=== PATIENT | female | born 1940 | race Caucasian/White ===

== ENCOUNTER 2016-11-26 10:19 | Emergency (ER) | payer MEDICARE ==
[2016-11-26 11:23] VITALS: BP 161/85
--- NOTE | 2016-11-26 15:48 | ED ---
I, Oh,Soohyun, scribed for Tino Sol MD on 11/26/16 at 1115 . Dizziness - HPI Summary HPI Summary: This 75 y/o female presents to ED for intermittent lightheaded dizziness since 2 weeks ago, worse since today AM. Positive for frontal "head pressure", general weakness, and "unsteadiness". Dizziness is worse with head movement. 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 She admits that she frequently takes decongestant to control recurrent congestions. Pt is currently on venlafaxine. Primary care involves Ramses Maldonado. Allergies information involving Levaquin and PCN is reviewed and confirmed. - History Of Current Complaint Chief Complaint: EDDizziness Stated Complaint: DIZZY Time Seen by Provider: 11/26/16 10:41 Hx Obtained From: Patient, Medical Records Timing: Intermittent Episode Lasting Character: Lightheaded Aggravating Factor(s): Change In Head Position Alleviating Factor(s): Nothing Associated Signs And Symptoms: Positive: Unsteady Gait, Other: - general weakness - Allergies/Home Medications Allergies/Adverse Reactions: Allergies Allergy/AdvReac Type Severity Reaction Status Date / Time Ibuprofen Allergy GI Upset Verified 11/26/16 10:39 Levofloxacin [From Levaquin] Allergy Rash Verified 11/26/16 10:39 Morphine Allergy Nausea And Verified 11/26/16 10:39 Vomiting Penicillins Allergy Hives Verified 11/26/16 10:39 PMH/Surg Hx/FS Hx/Imm Hx Cardiovascular History: Reports: Hx Hypertension Respiratory History: Reports: Hx Pulmonary Embolism - 2006 POST OP SPINAL SURGERY, Other Respiratory Problems/Disorders - emphysema Musculoskeletal History: Reports: Hx Arthritis - OSTEO: KNEES, HANDS Sensory History: Reports: Hx Cataracts - BILATERAL, Hx Contacts or Glasses - GLASSES Opthamlomology History: Reports: Hx Cataracts - BILATERAL, Hx Contacts or Glasses - GLASSES Psychiatric History: Reports: Hx Anxiety - ON MEDS - Surgical History Surgery Procedure, Year, and Place: YOUNG CHILD T&A [facility]. TEENAGER 1 OVARY REMOVED [facility]. 1960 APPENDECTOMY [facility]. 1991 [place]CTOMY [place]. [place] [facility] [place] SPINAL CORD TUMOR STRONG Hx Anesthesia Reactions: No Infectious Disease History: No Infectious Disease History: Denies: Traveled Outside the [place] in Last 30 Days - Family History Known Family History: Negative: Other - negative adverse anesthesia reaction - Social History Alcohol Use: Daily Alcohol Amount: 1 DRINK/NIGHT Substance Use Type: Reports: None Smoking Status (MU): Former Smoker Type: Cigarettes Amount Used/How Often: 1PPD 20YRS Have You Smoked in the Last Year: No Review of Systems Negative: Fever Positive: Other - "head heaviness Neurological: Other - Positive for lightheaded dizziness Positive: Weakness - general Positive: Anxious All Other Systems Reviewed And Are Negative: Yes Physical Exam - Summary Physical Exam Summary: Well-appearing, no pain distress, BMI > 30 = obese Warm, dry, color reflects adequate perfusion Nml head/face Nml eyes. EOMI. Nml ENT. Frontal sinus does not transluminate very well. Supple, non-tender CTA, breath sound present RRR Nml musculoskeletal Neuro: Normal [id number]. Negative pronator drift bilat upper extremities. Nml psychiatric, affect/mood appropriate Triage Information Reviewed: Yes Vital Signs On Initial Exam: Initial Vitals Temp Pulse Resp BP Pulse Ox 98.2 F 91 18 194/92 92 11/26/16 10:22 11/26/16 10:22 11/26/16 10:22 11/26/16 10:22 11/26/16 10:22 Vital Signs Reviewed: Yes Diagnostics - Vital Signs Vital Signs Temp Pulse Resp BP Pulse Ox 11/26/16 10:44 88 22 164/93 98 11/26/16 10:41 89 164/93 11/26/16 10:39 90 190/93 11/26/16 10:38 89 14 190/93 97 11/26/16 10:36 168/100 11/26/16 10:35 98.2 F 89 18 190/93 98 11/26/16 10:22 98.2 F 91 18 194/92 92 - Laboratory Lab Statement: Any lab studies that have been ordered have been reviewed, and results considered in the medical decision making process. - EKG 1038 Cardiac Rate: NL - NSR at 88 bpm EKG Rhythm: Sinus Rhythm Dizzy Course/Dx - Course Course Of Treatment: Ms. De Los Santos presented with a C/O 'fullness' in her forehead for a week or so that was worse if she tilted her head back. If she lies down it goes away after awhile and she can sleep. She has been using decongestants and antihistamines. Her frontal sinuses transilluminated poorly if at all and I will add antibiotics to her regimen. - Diagnoses Provider Diagnoses: Sinusitis Discharge - Discharge Plan Condition: Good Disposition: HOME Prescriptions: DOXYcycline CAP(*) [DOXYcycline 100MG CAP(*)] 100 mg PO BID #20 cap Patient Education Materials: Sinusitis (ED), Doxycycline (By mouth) Referrals: Daniella Quintero MD [Primary Care Provider] - 2 Days The documentation as recorded by the Denis quinonez Soohyun accurately reflects the service I personally performed and the decisions made by me, Tino Sol MD.
== END 2016-11-26 11:30 | disposition home or self-care (01) ==
LOC: ED 10:19
DX: J32.9 Chronic sinusitis, unspecified (principal); R42 Dizziness and giddiness; R53.1 Weakness; F41.9 Anxiety disorder, unspecified; Z87.891 Personal history of nicotine dependence
CPT/HCPCS: 93005; 99282

== ENCOUNTER 2017-02-10 13:40 | Emergency (ER) | payer MEDICARE ==
[2017-02-10 13:49] VITALS: BP 160/88
--- NOTE | 2017-02-10 16:20 | RAD ---
Indication: LEFT foot pain post fall. Comparison: No relevant prior exams available on the [facility] PACS for comparison. Technique: AP, lateral, and oblique views LEFT foot. Report: Negative for fracture or articular malalignment. Mild osteophytosis and joint space narrowing at the first metatarsal phalangeal joint. Chronic calcification at the noninsertional segment of the Achilles tendon. Unremarkable soft tissue contours. IMPRESSION: 1. Negative for fracture. 2. Mild first metatarsal phalangeal joint osteoarthritis. 3. Sequela of previous noninsertional Achilles tendinopathy.
--- NOTE | 2017-02-10 18:29 | ED ---
Mauri Flores Nilda, scribed for Tino Sol MD on 02/10/17 at 1552 . Adult Trauma - HPI Summary HPI Summary: This patient is a 76 year old F presenting to [facility] s/p fall when she tripped over cardboard while looking at a pumpkin display earlier today. The patient rates the pain 6/10 in severity. Symptoms alleviated by nothing. Patient reports left foot pain. - History of Current Complaint Chief Complaint: EDExtremityLower Stated Complaint: FALL/LT FOOT PAIN Time Seen by Provider: 02/10/17 14:39 Hx Obtained From: Patient Mechanism of Injury: Fall Onset/Duration: Started Hours Ago Current Severity: Moderate Pain Intensity: 6 Pain Scale Used: 0-10 Numeric Location: Extremities - left foot Alleviating Factor(s): Nothing - Allergy/Home Medications Allergies/Adverse Reactions: Allergies Allergy/AdvReac Type Severity Reaction Status Date / Time Ibuprofen Allergy GI Upset Verified 11/26/16 10:39 Levofloxacin [From Levaquin] Allergy Rash Verified 11/26/16 10:39 Morphine Allergy Nausea And Verified 11/26/16 10:39 Vomiting Penicillins Allergy Hives Verified 11/26/16 10:39 PMH/Surg Hx/FS Hx/Imm Hx Cardiovascular History: Reports: Hx Hypertension Respiratory History: Reports: Hx Pulmonary Embolism - 2006 POST OP SPINAL SURGERY, Other Respiratory Problems/Disorders - emphysema Musculoskeletal History: Reports: Hx Arthritis - OSTEO: KNEES, HANDS Sensory History: Reports: Hx Cataracts - BILATERAL, Hx Contacts or Glasses - GLASSES Opthamlomology History: Reports: Hx Cataracts - BILATERAL, Hx Contacts or Glasses - GLASSES Psychiatric History: Reports: Hx Anxiety - ON MEDS - Surgical History Surgery Procedure, Year, and Place: YOUNG CHILD T&A [facility]. TEENAGER 1 OVARY REMOVED [facility]. 1960 APPENDECTOMY [facility]. 1991 HYSTERECTOMY [place]. RT ING. HERNIA REPAIR [facility] [place]. 2006 BEINGN SPINAL CORD TUMOR STRONG Hx Anesthesia Reactions: No Infectious Disease History: No Infectious Disease History: Denies: Traveled Outside the [place] in Last 30 Days - Family History Known Family History: Positive: Hypertension Negative: Diabetes, Other - negative adverse anesthesia reaction - Social History Alcohol Use: Daily Alcohol Amount: 1 DRINK/NIGHT Substance Use Type: Reports: None Smoking Status (MU): Former Smoker Type: Cigarettes Amount Used/How Often: 1PPD 20YRS Have You Smoked in the Last Year: No Review of Systems Positive: Other - fall Negative: Shortness Of Breath Positive: Other - left foot pain All Other Systems Reviewed And Are Negative: Yes Physical Exam Triage Information Reviewed: Yes Vital Signs On Initial Exam: Initial Vitals Temp Pulse Resp BP Pulse Ox 98.3 F 93 17 160/88 99 02/10/17 13:44 02/10/17 13:44 02/10/17 13:44 02/10/17 13:44 02/10/17 13:44 Vital Signs Reviewed: Yes Appearance: Positive: Well-Appearing, No Pain Distress Skin: Positive: Warm, Skin Color Reflects Adequate Perfusion, Dry Head/Face: Positive: Normal Head/Face Inspection Eyes: Positive: Normal ENT: Positive: Normal ENT inspection Neck: Positive: Supple, Nontender Respiratory/Lung Sounds: Positive: Clear to Auscultation, Breath Sounds Present Cardiovascular: Positive: RRR Abdomen Description: Positive: Nontender, Soft Bowel Sounds: Positive: Present Musculoskeletal: Positive: Other - swelling in dorsal lateral portion of left foot Neurological: Positive: Normal Psychiatric: Positive: Normal, Affect/Mood Appropriate Diagnostics - Vital Signs Vital Signs Temp Pulse Resp BP Pulse Ox 02/10/17 13:44 98.3 F 93 17 160/88 99 - Laboratory Lab Statement: Any lab studies that have been ordered have been reviewed, and results considered in the medical decision making process. - Radiology Foot XRAY Radiology Interpretation Completed By: Radiologist - 1. Negative for fracture. 2. Mild first metatarsal phalangeal joint osteoarthritis. 3. Sequela of previous noninsertional Achilles tendinopathy. ED physician has reviewed this radiology report and agrees. 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 Her x-ray was negative for acute fracture and she was walking about the department without any distress. I will treat her conservatively. - Diagnoses Provider Diagnoses: Sprain of left foot Discharge - Discharge Plan Condition: Stable Disposition: HOME Patient Education Materials: Foot Sprain (ED) Referrals: Daniella Quintero MD [Primary Care Provider] - 1 Week Additional Instructions: Take ibuprofen as needed. RETURN TO THE EMERGENCY DEPARTMENT FOR CHANGING OR WORSENING SYMPTOMS. The documentation as recorded by the Mauri quinonez Nilda accurately reflects the service I personally performed and the decisions made by me, Tino Sol MD.
== END 2017-02-10 17:07 | disposition home or self-care (01) ==
LOC: ED 13:40
DX: S93.602A Unspecified sprain of left foot, initial encounter (principal); M79.672 Pain in left foot; W19.XXXA Unspecified fall, initial encounter; Y93.9 Activity, unspecified; Y92.9 Unspecified place or not applicable
CPT/HCPCS: 99281

== ENCOUNTER 2018-12-04 14:57 | Emergency (ER) | payer MEDICARE ==
[2018-12-04 15:56] LABS: ABS Basophils 0.1 10^3/ul (0-0.2); ABS Eosinophils 0.2 10^3/ul (0-0.6); ABS Lymphocytes 1.9 10^3/ul (1.0-4.8); ABS Monocytes 0.5 10^3/ul (0-0.8); ABS Neutrophils 5.9 10^3/ul (1.5-7.7); Eosinophil % 2.1 %; Hematocrit 39 % (35-47); Hemoglobin 13.3 g/dL (12.0-16.0); Lymphocyte % 22.2 %; Mean Corpuscular HGB Conc 34 g/dL (31-36); Mean Corpuscular Hemoglobin 31 pg (27-31); Mean Corpuscular Volume 91 fL (80-97); Mean Platelet Volume 7.3 fL (7.4-10.4); Platelet Count 187 10^3/uL (150-450); Red Blood Count 4.27 10^6 /uL (3.70-4.87); Red Cell Distribution Width 14 % (10-15); White Blood Count 8.5 10^3/uL (3.5-10.8)
[2018-12-04 16:02] LABS: INR 0.9 (0.82-1.09)
--- NOTE | 2018-12-04 16:02 | ED ---
HPI Chest Pain - HPI Summary HPI Summary: Patient is a 77-year-old female with history of hypertension hypercholesterolemia and emphysema presenting to the ED with midsternal chest tightness which immediately radiated to the left arm. The left arm discomfort dissipated after several seconds and the chest pain dissipated after a few minutes. She was at rest when this occurred. She states she does have emphysema, however has not been short of breath and denies any recent illness. Symptoms resolved spontaneously without medication. Symptoms were not worse with movement or better with rest. Sxs not reproducible. History includes 2 laminectomies, provoked PE following spinal surgery, HTN and HCL Current patient of Dr. Nguyen Quintero - History of Current Complaint Chief Complaint: EDChestPainROMI Time Seen by Provider: 12/04/18 15:34 Hx Obtained From: Patient Onset/Duration: Started Hours Ago Time of Onset: 14:20 - lasted approximately 5-10 minutes Timing: Constant Initial Severity: Moderate Current Severity: Moderate Pain Intensity: 1 Pain Scale Used: 0-10 Numeric Chest Pain Location: Mid Sternal Chest Pain Radiates: Yes Chest Pain Radiates To:: Arm Aggravating Factor(s): Nothing Alleviating Factor(s): Nothing Associated Signs and Symptoms: Positive: Negative - Risk Factors Pulmonary Embolism Risk Factors: Negative - Allergy/Home Medications Allergies/Adverse Reactions: Allergies Allergy/AdvReac Type Severity Reaction Status Date / Time ibuprofen Allergy GI Upset Verified 12/04/18 16:16 levofloxacin [From Levaquin] Allergy Rash Verified 12/04/18 16:16 morphine Allergy Nausea And Verified 12/04/18 16:16 Vomiting Penicillins Allergy Hives Verified 12/04/18 16:16 PMH/Surg Hx/FS Hx/Imm Hx Previously Healthy: Yes Cardiovascular History: Reports: Hx Hypertension Respiratory History: Reports: Hx Pulmonary Embolism - 2006 POST OP SPINAL SURGERY, Other Respiratory Problems/Disorders - emphysema Musculoskeletal History: Reports: Hx Arthritis - OSTEO: KNEES, HANDS Sensory History: Reports: Hx Cataracts - BILATERAL, Hx Contacts or Glasses - GLASSES Opthamlomology History: Reports: Hx Cataracts - BILATERAL, Hx Contacts or Glasses - GLASSES Psychiatric History: Reports: Hx Anxiety - ON MEDS - Surgical History Surgery Procedure, Year, and Place: YOUNG CHILD T&A [facility]. TEENAGER 1 OVARY REMOVED [facility]. 1960 APPENDECTOMY [facility]. 1991 HYSTERECTOMY [place]. RT ING. HERNIA REPAIR [facility] [place]. 2006 BEINGN SPINAL CORD TUMOR STRONG Hx Anesthesia Reactions: No - Immunization History Hx Pertussis Vaccination: No Immunizations Up to Date: Yes Infectious Disease History: Yes Infectious Disease History: Denies: Traveled Outside the [place] in Last 30 Days - Family History Known Family History: Positive: Hypertension Negative: Diabetes, Other - negative adverse anesthesia reaction - Social History Occupation: Unemployed Lives: With Family Alcohol Use: Daily Alcohol Amount: 1 DRINK/NIGHT Hx Substance Use: No Substance Use Type: Reports: None Hx Tobacco Use: Yes Smoking Status (MU): Former Smoker Type: Cigarettes Amount Used/How Often: 1PPD 20YRS Have You Smoked in the Last Year: No Review of Systems Constitutional: Negative Negative: Fever, Chills, Fatigue, Skin Diaphoresis Negative: Dental Pain Positive: Chest Pain. Negative: Palpitations Negative: Shortness Of Breath, Cough Negative: Abdominal Pain, Vomiting, Diarrhea Genitourinary: Negative Positive: no symptoms reported, see HPI Negative: Arthralgia, Myalgia, Decreased ROM, Edema Negative: Headache, Weakness, Paresthesia, Numbness, Syncope Positive: Anxious - became anxious following midsternal chest pain All Other Systems Reviewed And Are Negative: Yes Physical Exam Triage Information Reviewed: Yes Vital Signs On Initial Exam: Initial Vitals Temp Pulse Resp BP Pulse Ox 97.2 F 97 16 199/103 94 12/04/18 14:59 12/04/18 14:59 12/04/18 14:59 12/04/18 14:59 12/04/18 14:59 Vital Signs Reviewed: Yes Appearance: Positive: Well-Appearing, Well-Nourished Skin: Positive: Warm, Skin Color Reflects Adequate Perfusion Head/Face: Positive: Normal Head/Face Inspection Eyes: Positive: EOMI, ROC, Conjunctiva Clear Neck: Positive: Supple, No Lymphadenopathy Respiratory/Lung Sounds: Positive: Clear to Auscultation, Breath Sounds Present Cardiovascular: Positive: RRR, Pulses are Symmetrical in both Upper and Lower Extremities. Negative: Tachycardia, Leg Edema Left, Leg Edema Right Musculoskeletal: Positive: Normal, Strength/ROM Intact Neurological: Positive: Speech Normal Psychiatric: Positive: Normal, Affect/Mood Appropriate AVPU Assessment: Alert Diagnostics - Vital Signs Vital Signs Temp Pulse Resp BP Pulse Ox 12/04/18 14:59 97.2 F 97 16 199/103 94 - Laboratory Result Diagrams: 12/04/18 15:47 12/04/18 15:47 Lab Statement: Any lab studies that have been ordered have been reviewed, and results considered in the medical decision making process. Chest Pain Course/Dx - Course Course Of Treatment: This patient is evaluated for midsternal chest pain which radiated to the left arm which spontaneously resolved after a few minutes. Patient was at rest when the discomfort began. The discomfort is rated a 2/10, a tightening of the chest with associated headache. BP on arrival elevated at 199/103, on re-check 153/70. She denies any nausea, vomiting, abdominal pain, back pain. She did not take any medication prior to arrival. HEART score = low score for MACE. Patient asymptomtaic. Trop 0.00. Chest xray negative for any acute findings. EKG shows normal sinus rhythym with rate of 93. Discussed with patient at length the importance of close f/u with Dr. Quintero. As she does not have any PMH of CAD, she will be DC'd at this time with outpatient f/u and understands to return for any changing sxs. She remains asymptomatic at this time. Pt does have a hiatal hernia noted on CXR, however does not exhibit any typical sxs of this. - Chest Pain Differential Diagnosis/HQI/PQRI: Angina, Other: - emphysema - Diagnoses Provider Diagnoses: Angina at rest, Hiatal hernia Discharge - Sign-Out/Discharge Documenting (check all that apply): Patient Departure Patient Received Moderate/Deep Sedation with Procedure: No - Discharge Plan Condition: Stable Disposition: HOME Patient Education Materials: Angina (ED), Hiatal Hernia (ED) Referrals: Daniella Quintero MD [Primary Care Provider] - Additional Instructions: Please return to the ED for any changing or worsening symptoms Please follow up with Dr. Quintero - Billing Disposition and Condition Condition: STABLE Disposition: Home - Attestation Statements Provider Attestation: I am administratively signing this document. I was available for consultation for this patient. I did not evaluate the patient, did not have a doctor/patient relationship with the patient, or participate in any medical decision making or disposition decisions unless I am specifically named in the chart as having consulted on the patient. If I have consulted on the patient, please see my own ED note on the patient encounter. Albert Pearson MD
[2018-12-04 16:23] LABS: Albumin 4.3 g/dL (3.2-5.2); Albumin/Globulin Ratio 1.5 (1-3); BUN/Creatinine Ratio 34.6 (8-20); EGFR African American 138.7 (>60); EGFR Non-African American 114.6 (>60); Globulin 2.9 g/dL (2-4); Potassium 3.9 mmol/L (3.5-5.0); Total Bilirubin 0.3 mg/dL (0.2-1.0); Total Protein 7.2 g/dL (6.4-8.9)
[2018-12-04 17:15] VITALS: BP 158/90
== END 2018-12-04 17:17 | disposition home or self-care (01) ==
LOC: ED 14:57
DX: I20.9 Angina pectoris, unspecified (principal); K44.9 Diaphragmatic hernia without obstruction or gangrene; I10 Essential (primary) hypertension; Z88.1 Allergy status to other antibiotic agents; Z88.5 Allergy status to narcotic agent; Z88.0 Allergy status to penicillin; Z88.8 Allergy status to other drugs, medicaments and biological substances; Z87.891 Personal history of nicotine dependence; J44.9 Chronic obstructive pulmonary disease, unspecified
CPT/HCPCS: 36415; 71046; 80053; 84484; 85025; 85610; 93005; 99282

== ENCOUNTER 2021-01-31 08:34 | Inpatient (IN) ==
[2021-01-31] MEDS ORDERED: Famotidine IV 10 MG/ML 2 ml VIAL (20 mg) IV SLOW PU ONE (10:04)
[2021-01-31] MEDS ORDERED: Lactated Ringers 1000 ml BAG 1,000 ML IV ONE (10:05)
[2021-01-31 11:04] LABS: ABS Eosinophils 0.1 10^3/ul (0-0.6); ABS Lymphocytes 1.5 10^3/ul (1.0-4.8); ABS Monocytes 0.3 10^3/ul (0-0.8); ABS Neutrophils 5.8 10^3/ul (1.5-7.7); Eosinophil % 0.7 %; Hematocrit 41 % (35-47); Hemoglobin 13.9 g/dL (12.0-16.0); Lymphocyte % 18.9 %; Mean Corpuscular HGB Conc 34 g/dL (31-36); Mean Corpuscular Hemoglobin 31 pg (27-31); Mean Corpuscular Volume 93 fL (80-97); Mean Platelet Volume 7.2 fL (7.4-10.4); Platelet Count 206 10^3/uL (150-450); Red Blood Count 4.44 10^6 /uL (3.70-4.87); Red Cell Distribution Width 14 % (10-15); White Blood Count 7.7 10^3/uL (3.5-10.8)
[2021-01-31 11:55] LABS: Albumin 4.1 g/dL (3.2-5.2); Albumin/Globulin Ratio 1.3 (1-3); Calcium 10.7 mg/dL (8.6-10.3); EGFR African American 158.6 (>60); Globulin 3.2 g/dL (2-4); Potassium 3.9 mmol/L (3.5-5.0); Total Bilirubin 0.6 mg/dL (0.2-1.0); Total Protein 7.3 g/dL (6.4-8.9)
[2021-01-31 18:51] LABS: Rapid COVID-19 Molecular Undetected (Undetected)
[2021-01-31] MEDS ORDERED: Albuterol HFA INHALER 8 gm MDI INH PRN (22:58)
[2021-01-31] MEDS ORDERED: HYDROcodone/ACETAMIN 5/325 mg TAB PO PRN (22:58)
[2021-01-31] MEDS: Enoxaparin 40 MG/0.4 ML SYR SUBCUT SCH (23:12)
[2021-02-01] MEDS ORDERED: Tiotropium Brom/Olodaterol MDI INH SCH (09:00)
[2021-02-01] MEDS ORDERED: PTO: Umeclidin/Vilant 62.5 MDI 62.5/25 mcg 14 INH ELLIPTA DEVICE INH SCH (11:00)
[2021-02-01] MEDS: PTO: Umeclidin/Vilant 62.5 MDI 62.5/25 mcg 14 INH ELLIPTA DEVICE INH SCH (11:04)
[2021-02-01] MEDS ORDERED: Lactated Ringers 1000 ml BAG 1,000 ML IV SCH (12:00)
[2021-02-01] MEDS ORDERED: Midazolam 10 mg/10 ml VIAL 1 mg/ml 10 ml VIAL (10 mg) ONE (12:19)
[2021-02-01] MEDS ORDERED: fentaNYL 100 mcg/2 ml 50 MCG/ML VIAL ONE (12:19)
[2021-02-01] MEDS: Venlafaxine XR 75 mg PO SCH (17:33)
[2021-02-01] MEDS: Pantoprazole VIAL 40 MG VIAL IV SCH (19:05)
[2021-02-01] MEDS ORDERED: Pantoprazole VIAL 40 MG VIAL IV SCH (21:00)
[2021-02-01] MEDS ORDERED: CMCS: Pravastatin 20 mg TAB (NF) PO SCH (21:00)
[2021-02-01] MEDS ORDERED: HYDROcodone/ACETAMIN 5/325 mg TAB PO PRN (21:24)
[2021-02-01] MEDS: Enoxaparin 40 MG/0.4 ML SYR SUBCUT SCH (21:29)
[2021-02-02] MEDS ORDERED: Calcium Carb (TUMS) 500 mg CHEW TAB PO ONE (01:50)
[2021-02-02] MEDS: Pantoprazole VIAL 40 MG VIAL IV SCH (09:24)
[2021-02-02] MEDS: PTO: Umeclidin/Vilant 62.5 MDI 62.5/25 mcg 14 INH ELLIPTA DEVICE INH SCH (09:24)
[2021-02-02] MEDS: Venlafaxine XR 75 mg PO SCH (09:25)
[2021-02-02] MEDS ORDERED: Sucralfate 1 gm SUSP 1 GM/10 ML UDC PO SCH (11:30)
[2021-02-02 11:32] VITALS: BP 143/67
== END 2021-02-02 15:39 | disposition home or self-care (01) | DRG 382 ==
LOC: ED 08:34 → SSU 08:34 → SUATTDRO 16:18 → SSU 19:00
PROVIDERS: ADMIT Hospitalist; ATTEND Internal Medicine